=== PATIENT | female | born 1990 | race Caucasian/White ===

== ENCOUNTER 2017-07-14 20:36 | Emergency (ER) | payer OTHER ==
[~2017-07-14] VITALS: Ht 167.6 cm; Wt 68.0 kg
[~2017-07-14 20:36] MED LIST: LEVO25TA9 PO; NORE1TAB23 PO; PROP10TA10 PO
--- NOTE | 2017-07-14 20:45 | NUR ---
PT WITH FAMILY C/O N/V SINCE 1399 NO FOOD TODAY URINE SENT TO LAB
[2017-07-14 20:56] LABS: *BLOOD, URINE 1+ (NEGATIVE); *CLARITY,URINE SLIGHTLY CLOUDY (CLEAR); *COLOR,URINE YELLOW (YELLOW); *KETONES,URINE 4+ (NEGATIVE); *PROTEIN,URINE NEGATIVE (NEGATIVE); *URINE HCG, QUAL NEGATIVE (NEGATIVE); *UROBILINOGEN,URINE 0.2 E.U./dl (NORMAL); LEUKOCYTE ESTERASE ,URINE 1+ (NEGATIVE); NITRITE, URINE NEGATIVE (NEGATIVE); PH,URINE 5.5 (5.0-8.0); UGLUCOSE NEGATIVE (NEGATIVE)
--- NOTE | 2017-07-14 21:00 | NUR ---
DR FRAIRE TO EXAM
[2017-07-14 21:04] LABS: *BILIRUBIN,URIN NEGATIVE (NEGATIVE); BACTERIA,URINE MODERATE /HPF (NONE SEEN); SQUAMOUS EPITHELIAL CELL,UR MANY /HPF (NONE SEEN)
[2017-07-14 21:05] LABS: MUCUS,URINE FEW /LPF (0-FEW)
[2017-07-14] MEDS ORDERED: ONDANSETRON 4 MG/2 ML VIAL IV ONE (21:15)
[2017-07-14] MEDS ORDERED: KETOROLAC TROMETHAMINE 30 MG INJ IVP ONE (21:15)
[2017-07-14] MEDS ORDERED: IV NORMAL SALINE 1000 ML BAG IV ONE ×2 (21:15→22:15)
--- NOTE | 2017-07-14 21:20 | NUR ---
IV STARTED LT HAND 22G ;NS 1000ML IV BOLUS
--- NOTE | 2017-07-14 21:26 | NUR ---
PT TO CT SCAN VIA WC WITH TECH IV SALINE EDIE
--- NOTE | 2017-07-14 21:33 | NUR ---
PT RETURNED FROM CT IV FLUIDS BACK ON TO TV
[2017-07-14 21:34] LABS: BASOPHILS # (AUTO) 0.2 K/uL (0.0-8.0); BASOPHILS % (AUTO) 1.5 % (0.0-2.0); EOSINOPHILS # (AUTO) 0.1 K/uL (0.0-0.7); EOSINOPHILS % (AUTO) 0.7 % (0.0-7.0); HEMATOCRIT 47.9 % (37-47); HEMOGLOBIN 16.1 G/DL (12.0-16.0); LYMPHOCYTES # (AUTO) 0.6 K/UL (0.8-4.8); MEAN CORPUSCULAR HEMOGLOBIN 29.8 UUG (27.0-31.0); MEAN CORPUSCULAR HGB CONC 34 g/dL (32.0-37.0); MEAN CORPUSCULAR VOLUME 88.5 FL (81.0-99.0); MONOCYTES # (AUTO) 0.4 K/UL (0.1-1.30); MONOCYTES % (AUTO) 3.1 % (0.0-11.0); NEUTROPHILS # (AUTO) 12.7 K/UL (1.8-8.9); NEUTROPHILS % (AUTO) 90.7 % (38.5-71.5); PLATELET COUNT (AUTO) 324 K/UL (150-450); RED BLOOD CELL COUNT(AUTO) 5.42 MIL/UL (4.2-5.4)
[2017-07-14 21:37] LABS: CREATININE 0.6 mg/dL (0.6-1.3)
[2017-07-14 21:42] LABS: BILIRUBIN,DIRECT 0.1 mg/dL (0.0-0.2); BILIRUBIN,TOTAL 0.5 mg/dL (0.2-1.0); TOTAL PROTEIN, SERUM 7.6 g/dL (6.4-8.2)
--- NOTE | 2017-07-14 21:42 | NUR ---
MEDS GTIVEN ORDERED
[2017-07-14 21:48] LABS: BAND % (MANUAL) 12 % (0-10); LYMPHOCYTES % (MANUAL) 3 % (20-40); MONOCYTES % (MANUAL) 4 % (2-10); NEUTROPHILS % (MANUAL) 81 % (42-75)
[2017-07-14] MEDS ORDERED: ONDANSETRON 4 MG/2 ML VIAL ONE (21:51)
[2017-07-14] MEDS ORDERED: KETOROLAC TROMETHAMINE 30 MG INJ ONE (21:52)
--- NOTE | 2017-07-14 22:26 | NUR ---
PT STATES FEELING BETTER
--- NOTE | 2017-07-14 22:40 | NUR ---
DR FRAIRE TO MICHELA PT
--- NOTE | 2017-07-14 23:23 | NUR ---
IV COMPLETED AN DCD
[2017-07-14 23:24] VITALS: BP 116/72
--- NOTE | 2017-07-14 23:28 | NUR ---
Patient discharged to home in stable conditon. Written and verbal after care instructions given. Patient verbalizes understanding of instructions.
== END 2017-07-14 23:27 | disposition home or self-care (01) ==
LOC: ER 20:42
DX: R19.7 Diarrhea, unspecified (principal); R11.2 Nausea with vomiting, unspecified; E03.9 Hypothyroidism, unspecified; G43.909 Migraine, unspecified, not intractable, without status migrainosus
CPT/HCPCS: 36415; 74176; 80048; 80076; 81001; 83690; 84703; 85025; 96361; 96374; 96375; 99285; A4663; J1885; J2405; J7030

== ENCOUNTER 2023-03-13 01:11 | Emergency (ER) | payer OTHER ==
[~2023-03-13] VITALS: Ht 167.6 cm; Wt 62.1 kg
[2023-03-13] MEDS ORDERED: ONDANSETRON 4 MG/2 ML VIAL ONE (01:29)
[2023-03-13] MEDS ORDERED: IV D5/ 0.9% NACL 1,000 ML IV ONE (01:30)
[2023-03-13] MEDS ORDERED: ONDANSETRON 4 MG/2 ML VIAL IV ONE (01:30)
[2023-03-13 01:38] LABS: BASOPHILS # (AUTO) 0.1 K/UL (0.0-0.2); EOSINOPHILS # (AUTO) 0.1 K/uL (0.0-0.7); EOSINOPHILS % (AUTO) 1.7 % (0.0-7.0); HEMATOCRIT 46.1 % (31.2-41.9); HEMOGLOBIN 15.8 g/dL (10.9-14.3); LYMPHOCYTES # (AUTO) 1.6 K/uL (0.8-4.8); LYMPHOCYTES % (AUTO) 27.1 % (20.5-51.5); MEAN CORPUSCULAR HEMOGLOBIN 30.6 uug (24.7-32.8); MEAN CORPUSCULAR HGB CONC 34 g/dL (32.3-35.6); MEAN CORPUSCULAR VOLUME 89.4 fL (75.5-95.3); MONOCYTES # (AUTO) 0.7 K/uL (0.1-1.30); MONOCYTES % (AUTO) 11.7 % (0.0-11.0); NEUTROPHILS # (AUTO) 3.6 K/uL (1.8-8.9); NEUTROPHILS % (AUTO) 58.5 % (38.5-71.5); PLATELET COUNT (AUTO) 308 K/uL (179-408); RED BLOOD CELL COUNT(AUTO) 5.16 MIL/uL (3.63-4.92); RED CELL DISTRIBUTION WIDTH 12.8 % (12.3-17.7); WHITE BLOOD COUNT (AUTO) 6.1 K/uL (3.8-11.8)
[2023-03-13 01:44] LABS: CALCIUM 8.7 mg/dL (8.5-10.1); CREATININE 0.6 mg/dL (0.6-1.3); POTASSIUM 4.1 mmol/L (3.5-5.1)
[2023-03-13 01:46] LABS: DIFFERENTIAL COMMENT 1
[2023-03-13 01:51] LABS: ALBUMIN 3.9 g/dL (3.4-5.0); BILIRUBIN,DIRECT 0.1 mg/dL (0.0-0.2); BILIRUBIN,TOTAL 0.4 mg/dL (0.2-1.0); TOTAL PROTEIN, SERUM 7.6 g/dL (6.4-8.2)
[2023-03-13] MEDS ORDERED: diphenhydrAMINE 50 MG/1 ML VIAL ONE (02:12)
[2023-03-13] MEDS ORDERED: METOCLOPRAMIDE HCL 10 MG/2 ML VIAL ONE (02:13)
[2023-03-13] MEDS ORDERED: METOCLOPRAMIDE HCL 10 MG/2 ML VIAL IV ONE (02:15)
[2023-03-13] MEDS ORDERED: diphenhydrAMINE 50 MG/1 ML VIAL IV ONE (02:15)
[2023-03-13] MEDS ORDERED: ONDA4TAB11 PO (03:04)
[2023-03-13 03:29] VITALS: BP 120/79; TEMP 98.4; O2SAT 95
== END 2023-03-13 03:30 | disposition home or self-care (01) ==
LOC: ER 01:11
DX: E86.0 Dehydration (principal); G43.909 Migraine, unspecified, not intractable, without status migrainosus; R10.2 Pelvic and perineal pain; Z79.899 Other long term (current) drug therapy
CPT/HCPCS: 99284; 96374; 96375; 96361; 80076; 80048; 83690; 85025; 84702; 36415; J1200; J2765; J2405; J7042; A4663